=== PATIENT | female | born 1950 | race Caucasian/White ===

== ENCOUNTER 2016-09-12 08:15 | Emergency (ER) | payer OTHER ==
[2016-09-12 08:20] VITALS: BP 177/94; PULSE 77; TEMP 99; BMI 23.3
--- NOTE | 2016-09-12 08:57 | PDOC ---
History of Present Illness - General Chief Complaint: Injury Stated Complaint: FALL/ RT SIDE PAIN Time Seen by Provider: 09/12/16 08:41 History Source: Patient, Family Exam Limitations: No Limitations - History of Present Illness Initial Comments: 09/12/16 08:54 Past History - Past Medical History Allergies/Adverse Reactions: Allergies Allergy/AdvReac Type Severity Reaction Status Date / Time aspirin AdvReac Verified 09/12/16 08:20 lactose AdvReac Verified 09/12/16 08:20 Home Medications: Ambulatory Orders Omeprazole [Prilosec] 40 mg PO DAILY 03/28/15 Quinapril HCl [Accupril -] 40 mg PO DAILY 03/28/15 Simethicone Liquid [Mylicon Liquid -] 40 mg PO PRN PRN 03/28/15 Tramadol HCl 50 mg PO PRN PRN 03/28/15 Aspirin [ASA -] 81 mg PO DAILY 11/12/15 Anemia: No Asthma: No Cardiac Disorders: (PALPITATIONS) CVA: No COPD: No Dementia: No Diabetes: No GI Disorders: No Disorders: No HTN: Yes Kidney Stones: Yes Seizures: No Thyroid Disease: No - Surgical History Appendectomy: Yes Cardiac Surgery: No Cholecystectomy: No Lung Surgery: No - Psycho/Social/Smoking Cessation Hx Suicidal Ideation: No Smoking History: Never smoked Hx Alcohol Use: No Drug/Substance Use Hx: No Substance Use Type: None Hx Substance Use Treatment: No *Physical Exam - Vital Signs Last Vital Signs Temp Pulse Resp BP Pulse Ox 99.0 F 77 20 177/94 99 09/12/16 08:16 09/12/16 08:16 09/12/16 08:16 09/12/16 08:16 09/12/16 08:16 ED Treatment Course - RADIOLOGY Radiology Studies Ordered: Category Date Time Status RIBS RIGHT SIDE [RAD] Stat Radiology 09/12/16 08:50 Ordered
--- NOTE | 2016-09-12 09:04 | PDOC ---
History of Present Illness - General Chief Complaint: Injury Stated Complaint: FALL/ RT SIDE PAIN Time Seen by Provider: 09/12/16 08:41 History Source: Patient, Parent(s) Exam Limitations: No Limitations - History of Present Illness Initial Comments: 09/12/16 08:59 Patient tripped approximately one week ago falling onto the right side landing on her elbow in the cement. States sustained an injury to her chest wall that is not improved greatly. States is difficult to take a deep breath, states was bruised, and ibuprofen has not resolved pain. No other injury 09/12/16 09:27 09/12/16 15:01 Occurred: reports: just prior to arrival Severity: reports: moderate Pain Location: reports: chest Method of Injury: Yes: fall Modifying Factors: improves with: cold therapy, pain medication Loss of Consciousness: no loss of consciousness Associated Symptoms (Fall): denies symptoms Past History - Travel Traveled outside of the country in the last 30 days: No Close contact w/someone who was outside of country & ill: No - Past Medical History Allergies/Adverse Reactions: Allergies Allergy/AdvReac Type Severity Reaction Status Date / Time aspirin AdvReac Verified 09/12/16 08:20 lactose AdvReac Verified 09/12/16 08:20 Home Medications: Ambulatory Orders Omeprazole [Prilosec] 40 mg PO DAILY 03/28/15 Quinapril HCl [Accupril -] 40 mg PO DAILY 03/28/15 Simethicone Liquid [Mylicon Liquid -] 40 mg PO PRN PRN 03/28/15 Tramadol HCl 50 mg PO PRN PRN 03/28/15 Aspirin [ASA -] 81 mg PO DAILY 11/12/15 Anemia: No Asthma: No Cardiac Disorders: (PALPITATIONS) CVA: No COPD: No Dementia: No Diabetes: No GI Disorders: No Disorders: No HTN: Yes Kidney Stones: Yes Seizures: No Thyroid Disease: No - Surgical History Appendectomy: Yes Cardiac Surgery: No Cholecystectomy: No Lung Surgery: No - Psycho/Social/Smoking Cessation Hx Suicidal Ideation: No Smoking History: Never smoked Hx Alcohol Use: No Drug/Substance Use Hx: No Substance Use Type: None Hx Substance Use Treatment: No Trauma Specific PMHX - Complaint Specific PMHX Arthritis: No Back Injury: No Review of Systems - Review of Systems Able to Perform ROS?: Yes Is the patient limited Georgian proficient: Yes Constitutional: Yes: Symptoms Reported, See HPI, Loss of Appetite, Malaise. No : Fever HEENTM: Yes: See HPI. No: Symptoms Reported Respiratory: Yes: Symptoms reported, See HPI, Shortness of Breath, Other (chest wall pain with movement, right ) All Other Systems: Reviewed and Negative *Physical Exam - Vital Signs Last Vital Signs Temp Pulse Resp BP Pulse Ox 99.0 F 77 20 177/94 99 09/12/16 08:16 09/12/16 08:16 09/12/16 08:16 09/12/16 08:16 09/12/16 08:16 - Physical Exam General Appearance: Yes: Nourished, Appropriately Dressed, Moderate Distress HEENT: positive: EOMI, [place], Normal ENT Inspection, TMs Normal, Pharynx Normal Neck: positive: Supple. negative: Tender Respiratory/Chest: positive: Chest Tender (tenderness reproduced along the lateral aspect of her right rib no crepitus or step-offs, no obvious deformity or bruising noted), Lungs Clear, Normal Breath Sounds (but pleuritic type chest pain, unable to take deep inspiration). negative: Respiratory Distress Cardiovascular: positive: Regular Rate Musculoskeletal: positive: Normal Inspection. negative: CVA Tenderness Extremity: positive: Normal Capillary Refill, Normal Inspection, Normal Range of Motion Integumentary: positive: Normal Color, Warm. negative: Ecchymosis, Bruising Neurologic: positive: it auditor II-XII NML intact, Fully Oriented, Alert ED Treatment Course - RADIOLOGY Radiology Studies Ordered: Category Date Time Status RIBS RIGHT SIDE [RAD] Stat Radiology 09/12/16 08:50 Ordered Progress Note - Progress Note Progress Note: Chest contusion, no evidence of fracture in x-ray, will treat with continued tramadol rest and follow-up with PMD as needed *DC/Admit/Observation/Transfer Diagnosis at time of Disposition: Rib fractures Qualifiers: Encounter type: initial encounter Rib fracture type: single rib Fracture type: closed Laterality: right Qualified Code(s): S22.31XA - Fracture of one rib, right side, initial encounter for closed fracture - Discharge Dispostion Disposition: HOME Condition at time of disposition: Stable Admit: No - Referrals Referrals: Erwin Rooney [Primary Care Provider] - - Patient Instructions Printed Discharge Instructions: DI for Rib Contusion Additional Instructions: Rest, ice to area on and off for 15 minutes 4-6 times a day Avoid heavy lifting or exercise until pain and swelling is resolved or until further directed Followup with Private Doctor in one to 2 days if not improving, if significantly improved may wait one week for followup with PMD May use ibuprofen 2-200 mg tablets every 6 hours as needed for pain Tramadol for severe pain - Post Discharge Activity Work/School Note: Back to Work
== END 2016-09-12 09:34 | disposition home or self-care (01) ==
LOC: JERFT 08:15
DX: S22.31XA Fracture of one rib, right side, initial encounter for closed fracture (principal); W18.30XA Fall on same level, unspecified, initial encounter; Y93.9 Activity, unspecified; Y92.9 Unspecified place or not applicable; Z79.82 Long term (current) use of aspirin; R00.2 Palpitations; I10 Essential (primary) hypertension; Z87.442 Personal history of urinary calculi
CPT/HCPCS: 71101-TC-RT; 99281-25

== ENCOUNTER 2017-04-27 12:28 | Emergency (ER) | payer OTHER ==
[2017-04-27 12:36] VITALS: BMI 23.6
--- NOTE | 2017-04-27 13:57 | PDOC ---
History of Present Illness - General Chief Complaint: Hematuria Stated Complaint: BLOODY URINE Time Seen by Provider: 04/27/17 13:05 History Source: Patient Exam Limitations: No Limitations - History of Present Illness Initial Comments: This is a 67 yo female with h/o renal stones and UTI who presents with hematuria and abdominal pain for the past 24 hours. She notes multiple episodes of destiney bright red blood with clots in the urine. Her abdominal pain is in the left lower abdomen and suprapubic region, and feels similar to a UTI. It is 5/10 , worsening, non-radiating, and worsens with sitting up versus laying down flat. She took Tramadol for the pain, but has had no medication for it today. She denies using anticoagulants but occasionally take aspirin. She additionally notes urinary urgency, hesitancy, and chills. She has not had burning on urination, black/bloody stool, vaginal bleeding, incontinence, numbness, tingling, weakness, fever, SOB, or chest pain. Past History - Past Medical History Allergies/Adverse Reactions: Allergies Allergy/AdvReac Type Severity Reaction Status Date / Time aspirin AdvReac Verified 04/27/17 12:36 lactose AdvReac Verified 04/27/17 12:36 Home Medications: Ambulatory Orders Omeprazole [Prilosec] 40 mg PO DAILY 03/28/15 Quinapril HCl [Accupril -] 40 mg PO DAILY 03/28/15 Simethicone Liquid [Mylicon Liquid -] 40 mg PO PRN PRN 03/28/15 Tramadol HCl 50 mg PO PRN PRN 03/28/15 Aspirin [ASA -] 81 mg PO DAILY 11/12/15 Amlodipine Besylate [Norvasc -] 5 mg PO DAILY 04/27/17 Anemia: No Asthma: No Cardiac Disorders: (PALPITATIONS) CVA: No COPD: No Dementia: No Diabetes: No GI Disorders: No Disorders: No HTN: Yes Kidney Stones: Yes Seizures: No Thyroid Disease: No - Surgical History Appendectomy: Yes Cardiac Surgery: No Cholecystectomy: No Lung Surgery: No - Psycho/Social/Smoking Cessation Hx Suicidal Ideation: No Smoking History: Never smoked Hx Alcohol Use: No Drug/Substance Use Hx: No Substance Use Type: None Hx Substance Use Treatment: No Review of Systems - Review of Systems Constitutional: Yes: Chills. No: Loss of Appetite, Unexplained wgt Loss HEENTM: No: Nose Congestion, Throat Pain Respiratory: No: Cough, Shortness of Breath Cardiac (ROS): No: Chest Pain, Palpitations ABD/GI: No: Blood Streaked Bowels, Constipated, Diarrhea, Nausea, Rectal Bleeding, Vomiting : Yes: Hematuria, Urgency. No: Burning, Dysuria Musculoskeletal: Yes: Back Pain (unchanged chronic). No: Neck Pain Integumentary: No: Bruising, Rash Neurological: No: Headache, Numbness, Tingling, Weakness, Dizziness Endocrine: No: Unexplained Weight Gain, Unexplained Weight Loss *Physical Exam - Vital Signs Last Vital Signs Temp Pulse Resp BP Pulse Ox 98.2 F 64 20 133/69 100 04/27/17 12:33 04/27/17 12:33 04/27/17 12:33 04/27/17 12:33 04/27/17 12:33 - Physical Exam General Appearance: Yes: Nourished, Appropriately Dressed, Other (pleasant older Chadian-speaking female accompanied at bedside by her supportive daughter , appears comfortable, conversive and appropriate). No: Apparent Distress HEENT: positive: EOMI, Normal Voice, Hearing Grossly Normal. negative: Scleral Icterus (R), Scleral Icterus (L), Nasal Congestion Neck: positive: Trachea midline, Supple. negative: Tender, Rigid Respiratory/Chest: positive: Lungs Clear, Normal Breath Sounds. negative: Respiratory Distress, Crackles, Rhonchi, Stridor, Wheezing Cardiovascular: positive: Regular Rhythm, Regular Rate. negative: Murmur Gastrointestinal/Abdominal: positive: Normal Bowel Sounds, Tender (suprapubic and LLQ mild ttp), Soft. negative: Organomegaly, Pulsatile Mass, Distended, Guarding Musculoskeletal: positive: Normal Inspection. negative: Decreased Range of Motion, Vertebral Tenderness Extremity: positive: Normal Capillary Refill, Normal Inspection, Normal Range of Motion. negative: Tender, Cyanosis Integumentary: positive: Normal Color, Dry, Warm. negative: Erythema, Rash, Bruising Neurologic: positive: rig operator II-XII NML intact, Fully Oriented, Alert, Normal Mood/ Affect, Normal Response, Motor Strength 5/5 ED Treatment Course - LABORATORY CBC & Chemistry Diagram: 04/27/17 14:15 04/27/17 14:15 - RADIOLOGY Radiology Studies Ordered: CT/spiral - Renal Stone CT: Possible low-attenuation lesion upper ole left kidney posteriorly. Could represent a cyst. Was not noted on prior CT scan. Recommend additional imaging for confirmation and to exclude pathology. Medical Decision Making - Medical Decision Making This is a 67 yof with h/o renal stones and UTI who presents with destiney blood with clots in the urine. Pt never had these sxs before, takes baby ASA but not on additional anticoagulation. No recent illness/sore throat/cough/fever. Exam notable only for LLQ and suprapubic ttp. DDX includes hemorrhagic renal cyst, hemorrhagic cystitis, renal stone, coagulopathy/elevated INR, glomerulonephritis. Ordered is CBCD, CMP, PT/INR, UA with cx, spiral CT abdomen/pelvic stone protocol. 2+ blood and 2+ protein in urine, no e/o UTI. CBCD and CMP and PT/INR unremarkable. CT does show left renal cyst which may explain the patient's symptoms. The patient is not anemic and is asymptomatic. The case is discussed with her PCP (Dr. Garcia) who is comfortable with the plan for outpatient followup. The patient is instructed to see her urologist (Dr. Baltazar) on Saturday. She will follow up with Dr. Garcia as needed or return to the ED. *DC/Admit/Observation/Transfer Diagnosis at time of Disposition: Renal cyst Hematuria Qualifiers: Hematuria type: unspecified type Qualified Code(s): R31.9 - Hematuria, unspecified Abdominal pain Qualifiers: Abdominal location: unspecified location Qualified Code(s): R10.9 - Unspecified abdominal pain - Discharge Dispostion Disposition: HOME Condition at time of disposition: Stable Admit: No - Referrals Referrals: Erwin Rooney [Primary Care Provider] - - Patient Instructions Additional Instructions: You were seen today in the ER for blood in the urine and abdominal pain. We did lab work on your blood and urine, and we did find blood in the urine. We measured your kidney function and it is good. We also did a CT scan of your abdomen and there was a possible kidney cyst on the left side detected. If this cyst ruptured, it could explain your blood in the urine. Please follow up with your urologist (Dr. Baltazar) on Saturday to discuss your kidney cyst. Please also follow up with Dr. Garcia this week. Return to the emergency room for any new or worsening symptoms like lightheadedness, dizziness, headache, heart palpitations, chest pain, shortness of breath, or generalized weakness. Expect more episodes of blood in the urine, but you should not have any of the symptoms above. Print Language: PANAMANIAN
[2017-04-27 14:22] LABS: BASOPHIL 1.2 % (0-2.0); EOSINOPHIL 1.8 % (0-4.5); MCH 30.8 pg (25.7-33.7); MCHC 33.2 g/dl (32.0-36.0); MEAN CELL VOLUME 92.9 fl (80-96); MEAN PLT VOLUME 9.5 fl (7.5-11.1); NEUTROPHILS 67.6 % (42.8-82.8); PLATELET COUNT 234 K/MM3 (134-434); RDW 12.6 % (11.6-15.6)
[2017-04-27 14:25] LABS: URINE APPEARANCE CLOUDY; URINE BILIRUBIN NEGATIVE (NEGATIVE); URINE BLOOD 2+ (NEGATIVE); URINE COLOR RED; URINE GLUCOSE (UA) NEGATIVE (NEGATIVE); URINE KETONE NEGATIVE (NEGATIVE); URINE LEUK ESTERASE NEGATIVE (NEGATIVE); URINE NITRITE NEGATIVE (NEGATIVE); URINE UROBILINOGEN NEGATIVE mg/dL (0.2-1.0)
[2017-04-27 14:28] LABS: URINE PROTEIN 2+ (NEGATIVE)
[2017-04-27 14:41] LABS: INR 1.04 (0.82-1.09); PROTHROMBIN TIME (PATIENT) 11.5 SEC (9.98-11.88)
[2017-04-27 14:49] LABS: ALBUMIN 3.9 g/dl (3.4-5.0); ANION GAP 8 (8-16); CALCIUM 9.3 mg/dL (8.5-10.1); CO2 27 mmol/L (21-32); GLUCOSE,RANDOM 93 mg/dL (74-106)
[2017-04-27 14:52] LABS: ALK PHOS 85 U/L (45-117); BILIRUBIN,TOTAL 0.7 mg/dL (0.2-1.0); CREATININE 0.9 mg/dL (0.55-1.02); SGOT/AST 15 U/L (15-37); SGPT/ALT 26 U/L (12-78); TOT PROT 7.6 g/dl (6.4-8.2)
[2017-04-27 15:07] LABS: URINE MUCUS FEW; URINE RBC 3332 /hpf (0-3); URINE WBC 53 /hpf (3-5); YEAST MANY
--- NOTE | 2017-04-27 17:25 | PDOC ---
Attending Attestation - Resident Resident Name: DaveAmanda - ED Attending Attestation I have performed the following: I have examined & evaluated the patient, The case was reviewed & discussed with the resident, I agree w/resident's findings & plan, Exceptions are as noted - HPI HPI: 04/27/17 17:20 67 yo F h/o kidney stones presenting to the ER with a complaint of hematuria and lower abdominal pain no fevers or chills - Physicial Exam PE: 04/27/17 17:21 Lower abdominal tenderness No CVA tenderness - Medical Decision Making 04/27/17 17:22 Will do labs Will do CT Will re assess 04/27/17 17:22 Laboratory Tests 04/27/17 04/27/17 04/27/17 14:15 14:15 14:15 WBC 10.0 Hgb 12.3 D Hct 37.1 Plt Count 234 D BUN 18 D Creatinine 0.9 Urine Blood 2+ H Urine Nitrite Negative Ur Leukocyte Esterase Negative Urine RBC [address] demonstrates possible renal cyst Case reviewed with PMD Will refer to Urology Pt has nml renal function, Hgb : 12.3 No anticoagulants Voiding completely
[2017-04-27 18:06] VITALS: BP 130/65; PULSE 68; TEMP 98.1
== END 2017-04-27 16:54 | disposition home or self-care (01) ==
LOC: JER 12:28
DX: N28.1 Cyst of kidney, acquired (principal); R31.9 Hematuria, unspecified; Z87.442 Personal history of urinary calculi; I10 Essential (primary) hypertension
CPT/HCPCS: 36415; 74176; 80053; 81003; 81015; 85025; 85610; 87086; 99283-25

== ENCOUNTER 2017-10-28 10:04 | Emergency (ER) | payer OTHER ==
[2017-10-28 10:16] VITALS: BP 162/78; PULSE 76; TEMP 98.3; BMI 25.0
[2017-10-28] MEDS ORDERED: ACETAMINOPHEN 1000 MG/100 ML VIAL (NON FORMULARY) IVPB ONE (11:34)
[2017-10-28] MEDS ORDERED: METOCLOPRAMIDE HCL INJECTION 10 MG/2 ML VIAL IVPUSH ONE (11:34)
[2017-10-28] MEDS ORDERED: SODIUM CHLORIDE 1,000 ML IV STA (11:34)
[2017-10-28 12:03] LABS: BASO % 1.1 % (0-2.0); EOS % 1.5 % (0-4.5); HEMATOCRIT 37.8 % (32.4-45.2); HEMOGLOBIN 12.7 GM/dL (10.7-15.3); LYMPH % 19.2 % (8-40); MCH 30.8 pg (25.7-33.7); MCHC 33.6 g/dl (32.0-36.0); MEAN CELL VOLUME 91.6 fl (80-96); MEAN PLT VOLUME 9.3 fl (7.5-11.1); NEUT % 70.2 % (42.8-82.8); PLATELET COUNT 228 K/MM3 (134-434); RBC 4.12 M/mm3 (3.60-5.2); RDW 12.9 % (11.6-15.6); WHITE BLOOD COUNT 7.8 K/mm3 (4.0-10.0)
[2017-10-28] MEDS ORDERED: METOCLOPRAMIDE HCL INJECTION 10 MG/2 ML VIAL ONE (12:05)
[2017-10-28] MEDS ORDERED: ACETAMINOPHEN INJECTION 100 ML IVPB ONE (12:06)
[2017-10-28 12:17] LABS: INR 0.96 (0.82-1.09); PROTHROMBIN TIME (PATIENT) 10.8 SEC (9.98-11.88)
--- NOTE | 2017-10-28 12:26 | PDOC ---
History of Present Illness - General Chief Complaint: Injury Stated Complaint: FALL Time Seen by Provider: 10/28/17 10:50 History Source: Patient Exam Limitations: Language Barrier - History of Present Illness Initial Comments: 10/28/17 12:20 Patient is a 67F with history of HTN, HLD, appendicitis here today complaining of a fall. She states that she fell 6 days ago, tripping and falling down 5-6 stairs and hitting her chin. She reports that she lost consciousness for a short period of time and was taken by EMS to [facility]. She reports having x- rays of her shoulder and knees done, which were normal, then she was sent home. She states that she's coming back today complaining of pain to her head, neck, chest, back, hips and knees. Attempts to contact a physician in [facility] was unsuccessful. Patient has been able to walk at home. Her chest pain is right sided, worse with inspiration, movement and palpation. Past History - Past Medical History Allergies/Adverse Reactions: Allergies Allergy/AdvReac Type Severity Reaction Status Date / Time aspirin AdvReac Verified 10/28/17 10:09 lactose AdvReac Verified 10/28/17 10:09 Home Medications: Ambulatory Orders Tramadol HCl 50 mg PO TID 03/28/15 Aspirin [ASA -] 81 mg PO DAILY 11/12/15 Amlodipine Besylate [Norvasc -] 5 mg PO DAILY 04/27/17 Buspirone HCl [Buspar -] 5 mg PO ONCE 10/28/17 Diclofen Sod/Kinesiology Tape [Diclo Gel 1%-Xrylix Sheet Kit] 1 each TP BID 08/05 Folic Acid 1 mg PO DAILY 10/28/17 Loratadine 10 mg PO DAILY 10/28/17 Losartan Potassium 100 mg PO DAILY 10/28/17 Meclizine HCl 25 mg PO DAILY 10/28/17 Pravastatin Sodium 20 mg PO DAILY 10/28/17 Ranitidine [Zantac -] 150 mg PO BID 10/28/17 Anemia: No Asthma: No Cardiac Disorders: (PALPITATIONS) CVA: No COPD: No Dementia: No Diabetes: No GI Disorders: No Disorders: No HTN: Yes Kidney Stones: Yes Seizures: No Thyroid Disease: No - Surgical History Appendectomy: Yes Cardiac Surgery: No Cholecystectomy: No Lung Surgery: No - Suicide/Smoking/Psychosocial Hx Smoking History: Never smoked Hx Alcohol Use: No Drug/Substance Use Hx: No Substance Use Type: None Hx Substance Use Treatment: No Review of Systems - Review of Systems Able to Perform ROS?: Yes Comments:: 10/28/17 12:26 GENERAL/CONSTITUTIONAL: No fever or chills. No weakness. HEAD, EYES, EARS, NOSE AND THROAT: No change in vision. No sore throat. CARDIOVASCULAR: Positive for chest pain. Negative for shortness of breath RESPIRATORY: No cough, wheezing, or hemoptysis. GASTROINTESTINAL: No nausea, vomiting, diarrhea or constipation. GENITOURINARY: No dysuria, frequency, or change in urination. MUSCULOSKELETAL: Positive for pain in back, neck, head, hips, knees. SKIN: No rash NEUROLOGIC: Positive for headache. Negative for vertigo, loss of consciousness, or change in strength/sensation. ENDOCRINE: No increased thirst. No abnormal weight change HEMATOLOGIC/LYMPHATIC: No anemia, easy bleeding, or history of blood clots. ALLERGIC/IMMUNOLOGIC: No hives or skin allergy. *Physical Exam - Vital Signs Last Vital Signs Temp Pulse Resp BP Pulse Ox 98.3 F 76 19 162/78 99 10/28/17 10:09 10/28/17 10:09 10/28/17 10:10/28/17 10:10/28/17 10:09 - Physical Exam Comments: 10/28/17 12:28 GENERAL: Awake, alert, and fully oriented, in no acute distress HEAD: No signs of trauma, normocephalic, atraumatic CHEST: Small bruise, 2x2cm inferior to right breast, no other trauma noted. Tender to palpation diffusely BACK/NECK: Tender over c, t and l spine diffusely PELVIS: Tender, stable LEGS: No signs of trauma, ranges legs, normal strength, able to walk EYES: PERRLA, EOMI, sclera anicteric, conjunctiva clear ENT: Auricles normal inspection, hearing grossly normal, nares patent, oropharynx clear without exudates. Moist mucosa NECK: Normal ROM, supple, no lymphadenopathy, JVD, or masses LUNGS: No distress, speaks full sentences, clear to auscultation bilaterally HEART: Regular rate and rhythm, normal S1 and S2, no murmurs, rubs or gallops, peripheral pulses normal and equal bilaterally. ABDOMEN: Soft, nontender, normoactive bowel sounds. No guarding, no rebound. No masses EXTREMITIES: Normal inspection, Normal range of motion, no edema. No clubbing or cyanosis. NEUROLOGICAL: Cranial nerves II through XII grossly intact. Normal speech, normal gait, no focal sensorimotor deficits SKIN: Warm, Dry, normal turgor, no rashes or lesions noted. ED Treatment Course - LABORATORY CBC & Chemistry Diagram: 10/28/17 11:50 10/28/17 11:50 - ADDITIONAL ORDERS Additional order review: 10/28/17 11:50 RBC 4.12 MCV 91.6 MCHC 33.6 RDW 12.9 MPV 9.3 Neutrophils % 70.2 Lymphocytes % 19.2 Monocytes % 8.0 Eosinophils % 1.5 Basophils % 1.1 - RADIOLOGY Radiology Studies Ordered: Category Date Time Status CERVICAL SPINE CT W/O CONTR [CT] Stat CT Scan 10/28/17 11:[address] WITHOUT CONTRAST [CT] Stat CT Scan 10/28/17 11:[address] W/O CONTRAST [CT] Stat CT Scan 10/28/17 11:[address] W/O CONTRAST [CT] Stat CT Scan 10/28/17 11:37 Ordered CHEST PA & LAT [RAD] Stat Radiology 10/28/17 11:34 Taken - Medications Given in the ED: ED Medications Discontinued Medications Generic Name Dose Route Start Last Admin Trade Name Freq PRN Reason Stop Dose Admin Acetaminophen 1,000 mg 10/28/17 11:34 10/28/17 12:00 Ofirmev Injection - IVPB 10/28/17 11:35 1,000 mg ONCE ONE Administration Metoclopramide HCl 10 mg 10/28/17 11:34 10/28/17 12:00 Reglan Injection - IVPUSH 10/28/17 11:35 10 mg ONCE ONE Administration Medical Decision Making - Medical Decision Making 10/28/17 12:29 67F with history of HTN and HLD here today complaining of pain after a fall. Vital signs stable and normal. Patient evaluated at [facility], but uncertain of workup. Patient has been ambulatory since the accident, do not think it's likely trauma was missed, but do not have access to workup and cannot clear spine clinically. C-collar placed. Will evaluate chest pain with cbc, cmp, trop , ekg, pt/inr, cxr, mg. Will evaluate spine with c/t/l ct spine and ct head. Likely dispo home if all testing normal. Will treat pain with iv tylenol, will avoid opiates. 10/28/17 13:10 Laboratory Tests 10/28/17 10/28/17 10/28/17 11:50 11:50 11:50 WBC 7.8 Hgb 12.7 Hct 37.8 Plt Count 228 INR 0.96 Creat Clearance w eGFR > 60 Troponin I < 0.02 CBC normal. INR normal. CMP reassuring. Troponin negative. EKG and CT pending. 10/28/17 13:56 CT's negative for fractures, thyroid and kidney incidentalomas found on scans. Patient informed of results, given copy of reads, and instructed to follow up with PCP. Pain improved, ambulatory and alert at discharge. *DC/Admit/Observation/Transfer Diagnosis at time of Disposition: Fall - Discharge Dispostion Disposition: HOME Condition at time of disposition: Good Admit: No - Referrals Referrals: Erwin Rooney [Primary Care Provider] - - Patient Instructions Printed Discharge Instructions: DI for Low Back Pain Additional Instructions: Please follow up with your primary care physician this week. Please return if you have any new, worsening or concerning symptoms. In the work up of the pain of your fall, we found some abnormalities in your thyroid and kidney. You've been given a copy of the CT report. Please follow up with these issues with your primary care physician. Print Language: [id number] - Post Discharge Activity
[2017-10-28 12:38] LABS: ALBUMIN 3.8 g/dl (3.4-5.0); ANION GAP 13 (8-16); BILIRUBIN,TOTAL 0.3 mg/dL (0.2-1.0); BLOOD UREA NITROGEN 24 mg/dL (7-18); CALCIUM 9.2 mg/dL (8.5-10.1); CHLORIDE 107 mmol/L (98-107); CO2 23 mmol/L (21-32); CREATININE 0.9 mg/dL (0.55-1.02); GLUCOSE,RANDOM 102 mg/dL (74-106); MAGNESIUM 2.4 mg/dL (1.8-2.4); POTASSIUM 4.5 mmol/L (3.5-5.1); SGOT/AST 20 U/L (15-37); SGPT/ALT 31 U/L (12-78); SODIUM 143 mmol/L (136-145); TOT PROT 8.1 g/dl (6.4-8.2)
[2017-10-28 12:40] LABS: ALK PHOS 112 U/L (45-117)
--- NOTE | 2017-10-28 12:55 | PDOC ---
Attending Attestation - Resident Resident Name: Eric Campa - ED Attending Attestation I have performed the following: I have examined & evaluated the patient, The case was reviewed & discussed with the resident, I agree w/resident's findings & plan, Exceptions are as noted - HPI HPI: 10/28/17 12:50 67 F with HTN, HLD presenting to ED with head, neck, and back pain. Pt reports that she fell about 1 week ago, tripping and falling down 6 stairs. Pt was initially seen at [facility] where she had X rays done. Pt states that she did not have CT scans. She was discharged home and the same day. However, pt states that her pain has persisted. She complains of pain in her head, neck, back, and chest. Denies SOB. Denies any new injury. Pt denies N/V. Denies weakness/ numbness/tingling in any extremity. Pt has been ambulatory without assistance at home. Pt states that her chest pain is R sided and worse with deep inspiration. - Physicial Exam PE: 10/28/17 12:52 "GENERAL: Awake, alert, and fully oriented, in no acute distress HEAD: No signs of trauma EYES: PERRLA, EOMI, sclera anicteric, conjunctiva clear ENT: Auricles normal inspection, hearing grossly normal, nares patent, oropharynx clear without exudates. Moist mucosa NECK: Mild paraspinal neck tenderness, no stepoffs, Normal ROM, supple, no lymphadenopathy, JVD, or masses LUNGS: Breath sounds equal, clear to auscultation bilaterally. No wheezes, and no crackles HEART: Regular rate and rhythm, normal S1 and S2, no murmurs, rubs or gallops ABDOMEN: Soft, nontender, normoactive bowel sounds. No guarding, no rebound. No masses BACK: Mild lumbar paraspinal tenderness without stepoffs, no midline tenderness EXTREMITIES: Normal range of motion, no edema. No clubbing or cyanosis. No cords, erythema, or tenderness NEUROLOGICAL: Cranial nerves II through XII intact. 5/5 strength and sensation in all extremities, Normal speech, normal gait, normal cerebellar function SKIN: Warm, Dry, normal turgor, no rashes or lesions noted. " - Medical Decision Making 10/28/17 12:53 67 F with headache, neck pain, back pain, chest pain s/p fall 6 days ago. Likely 2/2 bruises. Pt with no signs of bony injury on exam. Pt with non-focal neuro exam, making spinal cord injury unlikely. Will obtain CTs to r/o ICH or spine fx. Pt's chest pain is likely rib pain, as it is R sided and reproducible with palpation. However, will r/o PTX with X ray. - Labs - CTH, CT-c-spine, CT T and L-spine - CXR - Pain control 10/28/17 14:10 Labs wnl CTs and XR negative for acute fx Pt with improved pain. Ambulatory with stable gait. Pt informed of incidental findings on CT - thyroid nodules and renal cyst. Understands need to f/u with PMD. I discussed the physical exam findings, ancillary test results and final diagnoses with the patient. I answered all of the patient's questions. The patient was satisfied with the care received and felt comfortable with the discharge plan and treatment plan. The patient agrees to follow up with the primary care physician within 24-72 hours.
--- NOTE | 2017-10-28 15:45 | EKG ---
Test Reason : Blood Pressure : / mmHG Vent. Rate : 086 BPM Atrial Rate : 086 BPM P-R Int : 142 ms QRS Dur : 080 ms QT Int : 366 ms P-R-T Axes : 070 052 045 degrees QTc Int : 437 ms NORMAL SINUS RHYTHM POSSIBLE LEFT ATRIAL ENLARGEMENT NONSPECIFIC ST AND T WAVE ABNORMALITY ABNORMAL ECG WHEN COMPARED WITH ECG OF 13-NOV-2015 09:36, COMPARED TO EKG NO SIGNIFICANT CHANGE IS FOUND Confirmed by YOGESH BARNEY MD ([id number]) on 10/28/2017 3:45:09 PM Referred By: Confirmed By:YOGESH BARNEY MD
== END 2017-10-28 14:34 | disposition home or self-care (01) ==
LOC: JER 10:04
PROC: 3E033GC Introduction of Other Therapeutic Substance into Peripheral Vein, Percutaneous Approach (ICD-10-PCS; principal; 2017-10-28)
PROC: 3E033NZ Introduction of Analgesics, Hypnotics, Sedatives into Peripheral Vein, Percutaneous Approach (ICD-10-PCS; 2017-10-28)
DX: S09.8XXA Other specified injuries of head, initial encounter (principal); M54.2 Cervicalgia; M54.5 Low back pain; M25.551 Pain in right hip; M25.552 Pain in left hip; M25.561 Pain in right knee; M25.562 Pain in left knee; W10.9XXA Fall (on) (from) unspecified stairs and steps, initial encounter; Y93.89 Activity, other specified; Y92.89 Other specified places as the place of occurrence of the external cause; Y99.8 Other external cause status; I10 Essential (primary) hypertension; E78.00 Pure hypercholesterolemia, unspecified
CPT/HCPCS: 36415; 70450-TC; 71046-TC-FY; 72125-TC; 72128-TC; 72131-TC; 80053; 82550; 83735; 84484; 85025; 85610; 93005; 93010; 96374; 96375; 99283-25

== ENCOUNTER 2019-06-10 17:22 | Emergency (ER) | payer OTHER ==
[2019-06-10 17:48] VITALS: PULSE 72; BMI 24.7
[2019-06-10] MEDS ORDERED: ACETAMINOPHEN 325 MG TABLET (FP) PO ONE (18:18)
[2019-06-10] MEDS ORDERED: ACETAMINOPHEN 325 MG TABLET (FP) ONE (19:00)
[2019-06-10] MEDS ORDERED: oxyCODONE HCL 5 MG TABLET PO ONE (19:56)
[2019-06-10] MEDS ORDERED: oxyCODONE HCL 5 MG TABLET ONE (20:03)
--- NOTE | 2019-06-10 20:05 | PDOC ---
Documentation entered by Og Hunt SCRIBE, acting as scribe for Silvana Valladares DO. Silvana Valladares, : This documentation has been prepared by the Gilbert harding Daniel, SCRIBE, under my direction and personally reviewed by me in its entirety. I confirm that the documentation accurately reflects all work, treatment, procedures, and medical decision making performed by me. History of Present Illness - General Chief Complaint: Injury Stated Complaint: FELL Time Seen by Provider: 06/10/19 17:58 History Source: Patient Exam Limitations: No Limitations - History of Present Illness Initial Comments: 06/10/19 18:25 The patient is a 69 year old female with a past medical history of HTN, HLD, and gastritis here today for evaluation of fall. The patient reports that [place] when she slipped on some wet leaves. She states that she landed on her right side and hit the right side of her head. She denies any loss of consciousness. She notes pain on the right side of her head and pain in her right marte which is worse with flexion. Patient is up to date on tetanus. Patient denies lightheadedness. Denies fever, chills. Denies chest pain, shortness of breath. Denies nausea, vomiting, diarrhea, abdominal pain. Allergies: aspirin, lactose Past History - Past Medical History Allergies/Adverse Reactions: Allergies Allergy/AdvReac Type Severity Reaction Status Date / Time aspirin AdvReac Verified 11/29/17 07:52 lactose AdvReac Verified 11/29/17 07:52 Home Medications: Ambulatory Orders Tramadol HCl 50 mg PO TID 03/28/15 Aspirin [ASA -] 81 mg PO DAILY 11/12/15 Amlodipine Besylate [Norvasc -] 5 mg PO DAILY 04/27/17 Buspirone HCl [Buspar -] 5 mg PO ONCE 10/28/17 Diclofen Sod/Kinesiology Tape [Diclo Gel 1%-Xrylix Sheet Kit] 1 each TP BID 08/05 Folic Acid 1 mg PO DAILY 10/28/17 Loratadine 10 mg PO DAILY 10/28/17 Losartan Potassium 100 mg PO DAILY 10/28/17 Meclizine HCl 25 mg PO DAILY 10/28/17 Pravastatin Sodium 20 mg PO DAILY 10/28/17 Ranitidine [Zantac -] 150 mg PO BID 10/28/17 Anemia: No Asthma: No Cardiac Disorders: (PALPITATIONS) CVA: No COPD: No Dementia: No Diabetes: No GI Disorders: No Disorders: No HTN: Yes Kidney Stones: Yes Seizures: No Thyroid Disease: No - Surgical History Appendectomy: Yes Cardiac Surgery: No Cholecystectomy: No Lung Surgery: No - Psycho Social/Smoking Cessation Hx Smoking History: Never smoked Have you smoked in the past 12 months: No Hx Alcohol Use: No Drug/Substance Use Hx: No Substance Use Type: None Hx Substance Use Treatment: No Review of Systems - Review of Systems Able to Perform ROS?: Yes Comments:: 06/10/19 18:25 GENERAL/CONSTITUTIONAL: No fever or chills. No weakness. HEAD, EYES, EARS, NOSE AND THROAT: +right sided head pain. No change in vision. No ear pain or discharge. No sore throat. GASTROINTESTINAL: No nausea, vomiting, diarrhea or constipation. GENITOURINARY: No dysuria, frequency, or change in urination. CARDIOVASCULAR: No chest pain or shortness of breath. RESPIRATORY: No cough, wheezing, or hemoptysis. MUSCULOSKELETAL: +right marte pain. No joint or muscle swelling or pain. No neck or back pain. SKIN: No rash NEUROLOGIC: No headache, vertigo, loss of consciousness, or change in strength/ sensation. ENDOCRINE: No increased thirst. No abnormal weight change. HEMATOLOGIC/LYMPHATIC: No anemia, easy bleeding, or history of blood clots. ALLERGIC/IMMUNOLOGIC: No hives or skin allergy. *Physical Exam - Vital Signs Last Vital Signs Temp Pulse Resp BP Pulse Ox 98.3 F 72 20 160/83 98 06/10/19 17:45 06/10/19 17:45 06/10/19 17:45 06/10/19 17:45 06/10/19 17:45 - Physical Exam Comments: 06/10/19 18:26 Constitutional: Awake, alert, oriented. No acute distress. Head: +edema right zygomatic arch. Normocephalic. Eyes: PERRL. EOMI. Conjunctivae are not pale. ENT: Mucous membranes are moist and intact. Posterior pharynx without exudates or erythema. Uvula midline. Neck: Supple. Full ROM. No lymphadenopathy. Cardiovascular: Regular rate. Regular rhythm. S1, S2 regular. Distal pulses are 2+ and symmetric. No chest wall tenderness. Pulmonary/Chest: No evidence of respiratory distress. Clear to auscultation bilaterally No wheezing, rales or rhonchi. Abdominal: +lower abdominal vertical scar. Soft and non-distended. There is no tenderness. No rebound, guarding or rigidity. No organomegaly. No palpable masses. Good bowel sounds. Back: No CVA tenderness. Musculoskeletal: No edema. No cyanosis. No clubbing. Full range of motion in all extremities. No calf tenderness. Radial/pedal pulses are intact and 2+ bilaterally Skin: +small abrasion to the dorsum surface of the right hand with no active bleeding. +abrasion of right tib fib with soft tissue swelling. Skin is warm and dry. No petechiae. No purpura. Neurological: Alert and oriented to person, place, and time. Cranial nerves II -XII are grossly intact. Normal speech. Strength is grossly symmetric. No sensory deficits. Psychiatric: Good eye contact. Normal interaction, affect and behavior. ED Treatment Course - RADIOLOGY Radiology Studies Ordered: Category Date Time Status FACIAL BONES CT W/O CONTRAST [CT] Stat CT Scan 06/10/19 18:[address] WITHOUT CONTRAST [CT] Stat CT Scan 06/10/19 18:17 Ordered HAND- RIGHT [RAD] Stat Radiology 06/10/19 18:17 Ordered LEG TIB/FIB-RIGHT [RAD] Stat Radiology 06/10/19 18:17 Ordered - Medications Given in the ED: ED Medications Discontinued Medications Generic Name Dose Route Start Last Admin Trade Name Freq PRN Reason Stop Dose Admin Acetaminophen 975 mg 06/10/19 18:18 06/10/19 19:05 Tylenol - PO 06/10/19 18:19 975 mg ONCE ONE Administration Medical Decision Making - Medical Decision Making 06/10/19 19:57 a/p: 69yo female s/p mechanical fall -slip and fall on wet [place] landing on her R side -hit right face, no loc -hit RLE -hx of chronic pain in her spine, no new spine pain -states difficulty getting up after the fall because of the pain in her tib/fib -pt with soft tissue swelling to R zygomatic arch with ttp along the arch and R anterior tib/fib -will send for head ct, facial ct -will obtain xray leg -pain control 06/10/19 21:[address] without acute finding and unchanged from prior 06/10/19 21:44 no fx on facial bones 06/10/19 21:45 hand xray prelim read- no acute fx tib/fib xray - prelim read no acute fx will ambulate pt 06/10/19 22:17 pt ambulates with minimal assistance daughter at the bedside, states she falls often and has spinal disease - follows with Dr. mccain -discussed labs and imgiang -daughter states she wants to take her home and has help at home for her placed pt in aircast for support stable for dc to home Discharge - Discharge Information Problems reviewed: Yes Clinical Impression/Diagnosis: Hand contusion, Contusion of tibia, Closed head injury, Fall Condition: Stable Disposition: HOME - Admission No - Follow up/Referral Referrals: Yasmani Busch DO [Staff Physician] - Ruddy Mccain MD [Staff Physician] - - Patient Discharge Instructions Patient Printed Discharge Instructions: DI for Contusion, DI for Leg Pain, DI for Closed Head Injury Additional Instructions: Please call the orthopedist for follow up on your R leg pain. Please also follow up with our neurologist. Please return to the ED with any further concerns or complaints. Please keep the leg elevated. Place ice to the leg - 20 min on and 20 min off. Please take tylenol or motrin as needed for pain. Please also follow up with your primary care provider. Please wear the air cast for comfort and support. - Post Discharge Activity
[2019-06-10 22:37] VITALS: BP 128/84; TEMP 98.2
== END 2019-06-10 22:36 | disposition home or self-care (01) ==
LOC: JER 17:22
DX: S09.8XXA Other specified injuries of head, initial encounter (principal); S60.221A Contusion of right hand, initial encounter; S80.11XA Contusion of right lower leg, initial encounter; W10.8XXA Fall (on) (from) other stairs and steps, initial encounter; Y93.89 Activity, other specified; Y92.522 Railway station as the place of occurrence of the external cause; Y99.8 Other external cause status; I10 Essential (primary) hypertension; Z87.442 Personal history of urinary calculi; R00.2 Palpitations; Z88.6 Allergy status to analgesic agent; Z91.02 Food additives allergy status; Z91.81 History of falling
CPT/HCPCS: 70450-TC; 70486-TC; 73130-TC-RT-FY; 73590-TC-RT-FY; 99282-25

== ENCOUNTER → 2020-10-25 | Day surgery (SDC) | payer OTHER | END | disposition home or self-care (01) | LOC: JRADIR 09:44 | PROVIDERS: ATTEND Internal Medicine Endocrinology, Diabetes & Metabolism | PROC: 0G9H3ZX Drainage of Right Thyroid Gland Lobe, Percutaneous Approach, Diagnostic (ICD-10-PCS; principal; 2020-10-25) | DX: E04.1 Nontoxic single thyroid nodule (principal) | CPT/HCPCS: 76942 ==

== ENCOUNTER → 2020-11-16 | Day surgery (SDC) | payer OTHER | END | disposition home or self-care (01) | LOC: JRADIR 10:06 | PROVIDERS: ATTEND Internal Medicine Endocrinology, Diabetes & Metabolism | PROC: 0G9K3ZX Drainage of Thyroid Gland, Percutaneous Approach, Diagnostic (ICD-10-PCS; principal; 2020-11-16) | DX: E04.1 Nontoxic single thyroid nodule (principal) | CPT/HCPCS: 10005; 76942; 88173; 88305-TC ==

== ENCOUNTER 2021-11-15 14:08 | Emergency (ER) | payer OTHER ==
[2021-11-15 14:19] VITALS: BP 163/75; PULSE 81; TEMP 97.4; BMI 24.3
[2021-11-15] MEDS ORDERED: ACETAMINOPHEN 500 MG TABLET (FP) PO ONE (14:52)
[2021-11-15] MEDS ORDERED: ACETAMINOPHEN 500 MG TABLET (FP) ONE (14:57)
== END 2021-11-15 17:22 ==
LOC: JERFT 14:08
DX: S00.83XA Contusion of other part of head, initial encounter (principal); S60.221A Contusion of right hand, initial encounter; W01.0XXA Fall on same level from slipping, tripping and stumbling without subsequent striking against object, initial encounter
CPT/HCPCS: 70450-TC; 70486-TC; 73110-TC-RT-FY; 73130-TC-RT-FY; 99285-25

== ENCOUNTER 2022-10-06 11:15 | Emergency (ER) | payer OTHER ==
[2022-10-06 11:28] VITALS: BP 161/71; PULSE 81; RESP 18; TEMP 97.4; BMI 25.3
[2022-10-06] MEDS ORDERED: DIPHTH,PERTUSS(ACELL),TET 0.5 ML DISP.SYRIN IM ONE (12:45)
== END 2022-10-06 13:12 | disposition home or self-care (01) ==
LOC: JERFT 11:15
PROC: 0HQ1XZZ Repair Face Skin, External Approach (ICD-10-PCS; principal; 2022-10-06)
DX: S01.81XA Laceration without foreign body of other part of head, initial encounter (principal); W01.0XXA Fall on same level from slipping, tripping and stumbling without subsequent striking against object, initial encounter
CPT/HCPCS: 99282-25

== ENCOUNTER 2024-10-02 11:25 | Emergency (ER) | payer OTHER ==
[2024-10-02 11:37] VITALS: TEMP 97.8; BMI 23.2
[2024-10-02] MEDS ORDERED: LIDOCAINE 4% PATCH TP ONE (12:48)
[2024-10-02] MEDS ORDERED: ACETAMINOPHEN 325 MG TABLET (FP) ONE (12:48)
[2024-10-02] MEDS: LIDOCAINE 5% TOPICAL PATCH TP ONE (13:05)
[2024-10-02] MEDS: ACETAMINOPHEN 500 MG TABLET (FP) PO ONE (13:05)
[2024-10-02 16:23] VITALS: BP 147/70; PULSE 75; RESP 18
[2024-10-02] MEDS ORDERED: LIDOCAINE PATCH REMOVAL MC SCH (22:00)
== END 2024-10-02 16:23 | disposition home or self-care (01) ==
LOC: JER 11:25
DX: M54.2 Cervicalgia (principal); M53.3 Sacrococcygeal disorders, not elsewhere classified; M25.551 Pain in right hip; M25.552 Pain in left hip; W00.0XXA Fall on same level due to ice and snow, initial encounter; Y93.01 Activity, walking, marching and hiking
CPT/HCPCS: 70450-TC; 72125-TC; 72220-TC-FY; 73521-TC-FY; 99284-25